=== PATIENT | male | born 1980 | race Two or more races ===

== ENCOUNTER → 2020-12-30 12:50 | Outpatient (CLI) | payer OTHER ==
--- NOTE | ~2020-12-30 | ST ---
PATIENT:AZEB BARON MEDICAL RECORD: [id number] SEX: M LOCATION:[facility] ORDER #: ADMISSION DATE: 12/30/20 AGE OF PATIENT: 40 REFERRING PHYSICIAN: INTERPRETING PHYSICIAN: KAYA FELIZ MD DATE OF SERVICE: 12/30/2020 PROCEDURE PERFORMED: Treadmill stress test. Baseline ECG is normal. Exercised for 10 minutes on Chidi protocol. Maximum heart rate 169 beats per minute, greater than 85% max predicted. No ECG change of ischemia. No symptoms of ischemia. Normal blood pressure response to exercise. No arrhythmias noted. Good exercise tolerance for age. TRANSINT:[id number] Voice Confirmation ID: [id number] DOCUMENT ID: [id number] KAYA FELIZ MD CC: [id number] DICTATION DATE: 12/31/20 1056 TILE MECHANIC HELPER: 01/01/21 0242 DEP CLI 12/30/20 [facility] [address] [place] [address]
--- NOTE | ~2020-12-30 | EC ---
PATIENT:AZEB BARON DATE OF SERVICE: 12/30/20 SEX: M MEDICAL RECORD: [id number] DATE OF : 80 [facility] AGE [facility] PAT[facility]: 40 ADMISSION DATE: 12/30/20 REFERRING PHYSICIAN: INTERPRETING PHYSICIAN: KAYA FELIZ MD ECHOCARDIOGRAM REPORT ECHO CHARGES 4 ECHO COMPLETE Date: 12/30/20 CLINICAL DIAGNOSIS: CHEST PAIN/HEART MURMUR DYSPNEA ON EXERTION ECHOCARDIOGRAPHIC MEASUREMENTS (adult normal given) AC root (d.<3.7cm) 3.2 cm LV Septum d (<1.2 cm> 1.1 cm Valve Excursion 1.3 cm LV Septum (systole) 1.4 cm Left Atria (s.<4.0cm> 3.4 cm LVPW d(<1.2cm) 1.4 cm RV (d.<2.3cm) 3.9 cm LVPW (sytole) 1.7 cm LV diastole(<5.6CM) 4.8 cm MV E-F(>70mm/sec) cm LV systole 3.2 cm LVOT Diameter 1.8 cm MV exc.(>10mm) 1.4 cm Est.ejection fraction (50-75%) % DOPPLER: LVIT cm/sec A 70.0 cm/sec E 95.0 cm/sec LA cm/sec RVSP 19 mmHg LVOT 119 cm/sec AOP1/2T m/s Asc. Ao 132 cm/sec RVOT 84 cm/sec RA cm/sec PA 120 cm/sec AV Gradient Peak 6.95 mmHg AV Mean 3.78 mmHg AV Area 2.2 cm MV Gradient Peak 3.67 mmHg MV Mean 1.60 mmHg MV Area cm COMMENTS: Supplier Quality Manager: 2 KAYLA RIVERA Traffic Workforce Representative: 3 Dr. Lombardi TAPE# PACS Pericardial Effusion N DATE OF SERVICE: FINDINGS: No LVH. LV internal dimension is normal. Wall motion is normal. EF is greater than or equal to 55%. Aortic valve is tricuspid. No evidence of stenosis by Doppler interrogation. Left atrium is normal at 3.4 cm. Mitral valve shows no prolapse. Trace MR. Right-sided chambers are grossly normal. Trace TR. TRANSINT:[id number] Voice Confirmation ID: [id number] DOCUMENT ID: [id number] ECHOCARDIOGRAM REPORT [id number] LIV BARONKAYA KIRAN MD CC: [id number] DICTATION DATE: 12/31/20 1322 [employer]LE[employer] OR [employer]IV[employer] FACULTY MEMBER: 12/31/20 2326 DEP CLI 12/30/20 [facility] [id number] [place] [address]
== END | disposition home or self-care (01) ==
LOC: D.HCCARDIO 12:50
PROVIDERS: ATTEND Internal Medicine Interventional Cardiology
DX: R07.9 Chest pain, unspecified (principal)